=== PATIENT | female | born 1950 | race Caucasian/White ===

== ENCOUNTER 2016-10-26 11:05 | Outpatient (CLI) | payer OTHER ==
[2016-10-26 11:44] LABS: ALBUMIN 4.3 g/dL (3.4-4.8); CALCIUM 9.3 mg/dL (8.4-11.0); CREATININE 0.79 mg/dL (0.55-1.30); TOTAL PROTEIN, SERUM 7.3 g/dL (6.4-8.3)
== END 2016-10-26 19:04 | disposition home or self-care (01) ==
LOC: SLB 11:05
PROVIDERS: ATTEND General Practice
DX: I10 Essential (primary) hypertension (principal); E55.9 Vitamin D deficiency, unspecified; E78.00 Pure hypercholesterolemia, unspecified
CPT/HCPCS: 36415; 80053; 80061; 82306; 82607

== ENCOUNTER 2017-10-11 15:58 | Outpatient (CLI) | payer OTHER | END 2017-10-11 19:36 | disposition home or self-care (01) | LOC: SMA 15:58 | PROVIDERS: ATTEND General Practice | DX: Z12.31 Encounter for screening mammogram for malignant neoplasm of breast (principal) | CPT/HCPCS: 77067 ==